=== PATIENT | male | born 1980 | race Asian ===

== ENCOUNTER 2018-04-23 08:14 | Emergency (ER) | payer OTHER ==
[~2018-04-23] VITALS: Ht 175.3 cm; Wt 122.5 kg
[2018-04-23 08:21] VITALS: TEMP 99.3
[2018-04-23 08:50] LABS: PLATELET COUNT 272 K/uL (142-355)
[2018-04-23 08:57] LABS: POTASSIUM 4.1 mmol/L (3.6-5.2)
[2018-04-23 10:20] VITALS: BP 144/82
== END 2018-04-23 10:20 | disposition home or self-care (01) ==
LOC: ED 08:14
PROVIDERS: Family Medicine
PROC: 0T9B70Z Drainage of Bladder with Drainage Device, Via Natural or Artificial Opening (ICD-10-PCS; principal; 2018-04-23)
DX: R31.9 Hematuria, unspecified (principal); R33.9 Retention of urine, unspecified
CPT/HCPCS: 80048; 81000; 85027; 96373; 99283; J0696

== ENCOUNTER 2018-04-24 05:54 | Emergency (ER) | payer OTHER ==
[~2018-04-24] VITALS: Ht 175.3 cm; Wt 122.5 kg
[2018-04-24 06:29] VITALS: BP 162/90; TEMP 98.3
== END 2018-04-24 06:31 | disposition home or self-care (01) ==
LOC: ED 05:54
DX: R31.9 Hematuria, unspecified (principal); R33.9 Retention of urine, unspecified
CPT/HCPCS: 99282

== ENCOUNTER 2021-10-11 20:26 | Emergency (ER) | payer BC ==
[~2021-10-11] VITALS: Ht 175.3 cm; Wt 127.0 kg
[2021-10-11 23:36] VITALS: BP 127/60; TEMP 97.9
== END 2021-10-11 23:36 | disposition home or self-care (01) ==
LOC: ED 20:26
DX: S60.222A Contusion of left hand, initial encounter (principal); S50.12XA Contusion of left forearm, initial encounter; S60.512A Abrasion of left hand, initial encounter; S50.812A Abrasion of left forearm, initial encounter; V86.65XA Passenger of 3- or 4- wheeled all-terrain vehicle (ATV) injured in nontraffic accident, initial encounter; Y92.89 Other specified places as the place of occurrence of the external cause
CPT/HCPCS: 36415; 96360; 96372; 99284; J2175; J2550

== ENCOUNTER 2021-10-28 12:54 | Outpatient (CLI) | payer BC | END 2021-10-28 18:59 | disposition home or self-care (01) | LOC: RAD 12:54 | PROVIDERS: ATTEND Nurse Practitioner Family | DX: S67.22XD Crushing injury of left hand, subsequent encounter (principal); S69.92XD Unspecified injury of left wrist, hand and finger(s), subsequent encounter ==